=== PATIENT | female | born 1965 | race Caucasian/White ===

== ENCOUNTER 2017-12-20 22:46 | Emergency (ER) | payer MEDICAID, OTHER ==
[~2017-12-20] VITALS: Ht 170.2 cm; Wt 59.5 kg
[2017-12-20] MEDS ORDERED: OMEG1CAP2 (23:14)
[2017-12-20] MEDS ORDERED: FOLI0.4T2 PO (23:14)
[2017-12-20] MEDS ORDERED: MULT-38 PO (23:14)
[2017-12-20] MEDS ORDERED: SYN0.088T PO (23:14)
[2017-12-20] MEDS ORDERED: ESCI5TAB12 PO (23:14)
[2017-12-20 23:47] LABS: BASOPHILS % (AUTO) 0.3 % (0-1); EOSINOPHILS % (AUTO) 0 % (0-6); HEMATOCRIT 35.5 % (35.0-45.0); HEMOGLOBIN 12.3 g/dl (12.0-16.0); LYMPHOCYTES # (AUTO) 1.9 X10'3 (1.1-4.8); LYMPHOCYTES % (AUTO) 15.4 % (21-51); MEAN CORPUSCULAR HEMOGLOBIN 32.5 PG (27.0-31.0); MEAN CORPUSCULAR HGB CONC 34.6 % (33.0-36.5); MEAN CORPUSCULAR VOLUME 93.9 FL (78-98); MEAN PLATELET VOLUME 6.7 FL (7.4-10.4); MONOCYTES # (AUTO) 0.6 X10'3 (0-0.9); MONOCYTES % (AUTO) 4.9 % (2-12); NEUTROPHILS # (AUTO) 9.9 X10'3 (1.8-7.7); NEUTROPHILS % (AUTO) 79.4 % (42-75); PLATELET COUNT 523 X10'3 (140-440); RED BLOOD COUNT 3.78 X10'6 (4.20-5.60); RED CELL DISTRIBUTION WIDTH 13.4 % (11.5-14.5); WHITE BLOOD COUNT 12.4 X10'3 (4.5-11.0)
[2017-12-21 00:12] LABS: ALANINE AMINOTRANSFERASE 17 U/L (12-78); ALBUMIN 4.2 G/DL (3.4-5.0); ALKALINE PHOSPHATASE 63 IU/L (46-116); ANION GAP 14 (8-16); ASPARTATE AMINO TRANSFERASE 18 U/L (10-37); BILIRUBIN,TOTAL 0.2 MG/DL (0.1-1.0); BLOOD UREA NITROGEN 19 MG/DL (7-18); BUN/CREATININE RATIO 18.3 (6.6-38.0); CALCIUM 9.4 MG/DL (8.5-10.1); CHLORIDE 100 MMOL/L (99-107); CREATININE 1.04 MG/DL (0.40-0.90); GLUCOSE 103 MG/DL (70-104); POTASSIUM 3.5 MMOL/L (3.5-5.1); SODIUM 137 MMOL/L (135-145); TOTAL CARBON DIOXIDE 22.6 MMOL/L (24-32); TOTAL PROTEIN 8.4 G/DL (6.4-8.2); eGFR 55 ML/MIN
[2017-12-21 00:20] LABS: ETHANOL 0.215 GM/DL (0.0-0.010)
[2017-12-21 00:36] LABS: CLARITY,URINE CLEAR (Clear); COLOR,URINE STRAW (Yellow); GLUCOSE, URINE NEGATIVE (Neg); KETONES,URINE NEGATIVE (Neg); LEUKOCYTE ESTERASE ,URINE SMALL (Neg); NITRITES, URINE NEGATIVE (Neg); OCCULT BLOOD,URINE TRACE-INTACT (Neg); PROTEIN,URINE NEGATIVE (Neg); UROBILINOGEN,URINE 0.2 E.U/dL (0.2-1.0)
[2017-12-21 00:45] LABS: UA COLLECTION TYPE VOIDED
[2017-12-21 00:46] LABS: BACTERIA,URINE 2+ /HPF (Neg); SQUAMOUS EPITHELIAL CELL,UR FEW /LPF (FEW)
[2017-12-21 00:49] LABS: URINE AMPHETAMINE SCREEN NEGATIVE (Neg); URINE BARBITUATE SCREEN NEGATIVE (Neg); URINE BENZODIAZEPINES SCREEN NEGATIVE (Neg); URINE CANNABINOID SCREEN NEGATIVE (Neg); URINE COCAINE SCREEN NEGATIVE (Neg); URINE METHADONE SCREEN NEGATIVE (Neg); URINE OPIATE SCREEN NEGATIVE (Neg); URINE PHENCYCLIDINE SCREEN NEGATIVE (Neg)
[2017-12-21] MEDS ORDERED: acetaminophen 325mg tablet PO ONE (07:05)
[2017-12-21] MEDS ORDERED: nitrofuran/nitrofuran macrocrysal 100 MG capsule PO ONE ×2 (07:10)
[2017-12-21] MEDS ORDERED: levoTHYROXINE 88mcg tablet PO SCH (07:30)
[2017-12-21] MEDS ORDERED: folic acid 0.4mg tablet PO SCH (08:00)
[2017-12-21] MEDS ORDERED: CITALOpram 10mg tablet PO SCH (08:00)
[2017-12-21] MEDS ORDERED: multivitamins, therapeutics tablet PO SCH (08:00)
[2017-12-21] MEDS ORDERED: NITR100C6 PO (10:21)
[2017-12-21 10:57] VITALS: BP 153/96
== END 2017-12-21 10:35 | disposition home or self-care (01) ==
LOC: ER 22:47
DX: F10.129 Alcohol abuse with intoxication, unspecified (principal); F10.950 Alcohol use, unspecified with alcohol-induced psychotic disorder with delusions; F22 Delusional disorders; Z79.899 Other long term (current) drug therapy; Y90.9 Presence of alcohol in blood, level not specified
CPT/HCPCS: 36415; 80053; 80305; 80320; 81001; 84443; 85025; 99285